=== PATIENT | female | born 1960 | race Caucasian/White ===

== ENCOUNTER 2017-07-10 07:54 | Day surgery (SDC) | payer BC ==
[~2017-07-10 07:54] MED LIST: CIPROFLOXACIN HCL 500 MG TABLET PO PRN
[2017-07-10] MEDS ORDERED: LIDOCAINE HCL 10 APPL CARTRIDGE TP ONE (08:30)
[2017-07-10 08:56] LABS: Urine Bilirubin Negative (NEGATIVE); Urine Blood Negative /ul (NEGATIVE); Urine Ketone Negative (NEGATIVE); Urine Nitrite Negative (NEGATIVE); Urine Protein Negative (NEGATIVE); Urine Specific Gravity 1.015 SP.GR. (1.005-1.010); Urine Urobilinogen Normal (NORMAL); Urine pH 5.5 pH (5.0-7.0)
[2017-07-10 09:03] VITALS: BP 125/69
[2017-07-10 09:14] LABS: Urine Appearance Clear; Urine Bacteria TRACE; Urine Color Yellow; Urine RBC None Seen /hpf (0-5); Urine WBC 0-5 /hpf (0-5)
== END 2017-07-10 07:55 | disposition home or self-care (01) ==
LOC: AMB 07:54
PROVIDERS: ATTEND Urology
PROC: 3E1K88X Irrigation of Genitourinary Tract using Irrigating Substance, Via Natural or Artificial Opening Endoscopic, Diagnostic (ICD-10-PCS; 2017-07-10)
PROC: 0TJB8ZZ Inspection of Bladder, Via Natural or Artificial Opening Endoscopic (ICD-10-PCS; principal; 2017-07-10 08:30)
DX: R31.29 Other microscopic hematuria (principal); R30.0 Dysuria; E66.9 Obesity, unspecified; Z68.30 Body mass index [BMI] 30.0-30.9, adult; F17.200 Nicotine dependence, unspecified, uncomplicated